=== PATIENT | female | born 1970 | race Caucasian/White ===

== ENCOUNTER 2021-10-30 15:52 | Outpatient (REF) | payer OTHER, SELFPAY ==
[2021-10-30 18:41] LABS: Estimated Average Glucose 91 mg/dL; Hemoglobin A1C 96.0945 umol/L; Hemoglobin A1c % 4.8 %
[2021-10-30 18:46] LABS: Iron 64 mcg/dL (30-160); Percent Iron Saturation 26 % (15-50); Total Iron Binding Capacity 243 mcg/dL (228-428); Unsaturated Iron Binding 179 ug/dL
[2021-10-30 18:55] LABS: Appearance Urine CLEAR; Color Urine YELLOW; Glucose Urine UA NEG (NEG); Leukocyte Esterase Urine NEG (NEG); Nitrite Urine NEG (NEG); PH 5.5 (5.0-8.0); Specific Gravity - Urine >= 1.030 (1.005-1.025); Urine Blood NEG (NEG); Urine Ketones 5 MG/DL (NEG); Urine Protein NEG (NEG-TRACE)
[2021-10-30 19:06] LABS: Syphilis Screen Nonreactive (Nonreactive)
[2021-10-30 19:09] LABS: Ferritin 120 ng/mL (10-250); Thyroid Stimulating Hormone 1.83 uIU/mL (0.32-4.0)
[2021-10-30 19:21] LABS: Folate > 20.0 ng/mL (> or = 4.0); Vitamin B12 384 pg/mL (200-900)
== END 2021-10-30 15:53 | disposition home or self-care (01) ==
LOC: HO.MANLDS 15:52
PROVIDERS: PCP Physician Assistant; Visit Provider Physician Assistant
DX: R41.3 Other amnesia (principal)
CPT/HCPCS: 36415; 81003; 82607; 82728; 82746; 83036; 83540; 84439; 84443; 86780

== ENCOUNTER 2021-11-02 08:04 | Outpatient (REF) | payer OTHER, SELFPAY ==
[2021-11-02 11:05] LABS: MANUAL DIFF FLAG NO
[2021-11-02 11:07] LABS: Basophils Percent Auto 0.3 % (0-2); Eosinophils Absolute Auto 0.2 X10*3/uL (0.0-0.4); Eosinophils Percent Auto 2.5 % (0-4); Hematocrit 41.6 % (37.0-47.0); Hemoglobin 13.9 g/dl (12.0-16.0); Imm Gran Abs Auto 0.06 X10*3/uL (0.00-0.03); Lymphocytes Absolute Auto 1.7 X10*3/uL (1.2-4.9); Lymphocytes Percent Auto 28.3 % (20-40); Mean Corpuscular HGB Conc 33.4 g/dl (31.0-35.0); Mean Corpuscular Hemoglobin 30.8 pg (27.0-33.0); Mean Corpuscular Volume 92.2 fL (80.0-98.0); Mean Platelet Volume 10.3 fL (9.4-12.3); Monocytes Absolute Auto 0.5 X10*3/uL (0.1-1.2); Neutrophils Absolute Auto 3.6 x10*3/uL (2.0-8.3); Neutrophils Percent Auto 59.9 % (45-73); Platelet Count 219 X10*3/uL (160-400); Red Blood Count 4.51 X10*6/uL (4.20-5.50); Red Cell Distribution Width 12.2 % (11.0-16.0)
[2021-11-02 11:23] LABS: Alanine Aminotransferase 16 U/L (0-31); Albumin Level 4.2 g/dL (3.5-5.0); Alkaline Phosphatase 39 U/L (39-117); Anion Gap 10 (12-20); Aspartate Amino Transferase 18 U/L (5-31); Bilirubin Total 0.6 mg/dL (0.0-1.0); Blood Urea Nitrogen 17 mg/dL (9-16); Calcium 9.2 mg/dL (8.4-10.2); Carbon Dioxide 29 mmol/L (22-29); Chloride 105 mmol/L (96-108); Cholesterol 177 mg/dL; Estimated Glomerular Filt Rate > 60; Glucose Fasting 73 mg/dL (60-99); HDL Cholesterol 43 mg/dL; LDL Cholesterol Calculated 113 mg/dl; Sodium 140 mmol/L (135-145); Total Protein 6.6 g/dL (6.5-8.0); Triglycerides 106 mg/dL
== END 2021-11-02 08:05 | disposition home or self-care (01) ==
LOC: HO.MANLDS 08:04
PROVIDERS: PCP Physician Assistant; Visit Provider Physician Assistant
DX: Z00.00 Encounter for general adult medical examination without abnormal findings (principal)
CPT/HCPCS: 36415; 80053; 80061; 85025

== ENCOUNTER 2021-11-04 11:36 | Outpatient (REF) | payer OTHER, SELFPAY ==
[2021-11-04 12:55] LABS: Appearance Urine HAZY; Color Urine YELLOW; Glucose Urine UA NEG (NEG); Leukocyte Esterase Urine NEG (NEG); Nitrite Urine NEG (NEG); Specific Gravity - Urine <= 1.005 (1.005-1.025); Urine Blood NEG (NEG); Urine Ketones NEG (NEG); Urine Protein NEG (NEG-TRACE)
== END 2021-11-04 11:37 | disposition home or self-care (01) ==
LOC: HO.MANLDS 11:36
PROVIDERS: PCP Physician Assistant; Visit Provider Physician Assistant
DX: R30.0 Dysuria (principal)
CPT/HCPCS: 81003

== ENCOUNTER 2022-05-31 14:24 | Outpatient (REF) | payer OTHER, SELFPAY ==
[2022-05-31 15:32] LABS: Appearance Urine Clear; Color Urine Yellow; Glucose Urine UA Negative (Negative); Leukocyte Esterase Urine Negative (Negative); Nitrite Urine Negative (Negative); Specific Gravity - Urine <= 1.005 (1.005-1.025); Urine Blood Negative (Negative); Urine Ketones Negative (Negative); Urine Protein Negative (Neg-Trace)
== END 2022-05-31 14:25 | disposition home or self-care (01) ==
LOC: HO.LNP 14:24
PROVIDERS: Visit Provider Physician Assistant
DX: Z00.00 Encounter for general adult medical examination without abnormal findings (principal)
CPT/HCPCS: 81003; 87086

== ENCOUNTER 2023-03-18 12:08 | Outpatient (REF) | payer OTHER, SELFPAY ==
[2023-03-18 17:54] LABS: Alanine Aminotransferase 17 U/L (0-31); Albumin Level 4.1 g/dL (3.5-5.0); Alkaline Phosphatase 50 U/L (39-117); Aspartate Amino Transferase 20 U/L (5-31); Bilirubin Direct 0.3 mg/dL (0.0-0.5); Bilirubin Total 0.6 mg/dL (0.0-1.0); Total Protein 6.5 g/dL (6.5-8.0)
== END 2023-03-18 12:09 | disposition home or self-care (01) ==
LOC: HO.MANLDS 12:08
PROVIDERS: Visit Provider Internal Medicine
DX: R74.01 Elevation of levels of liver transaminase levels (principal)
CPT/HCPCS: 36415; 80076

== ENCOUNTER 2024-01-16 15:07 | Outpatient (REF) | payer OTHER, SELFPAY ==
[2024-01-16 18:10] LABS: Alanine Aminotransferase 14 U/L (0-31); Albumin Level 4.4 g/dL (3.5-5.0); Alkaline Phosphatase 54 U/L (39-117); Anion Gap 11 (12-20); Aspartate Amino Transferase 24 U/L (5-31); Bilirubin Total 0.4 mg/dL (0.0-1.0); Blood Urea Nitrogen 16 mg/dL (9-16); Calcium 9.6 mg/dL (8.4-10.2); Carbon Dioxide 27 mmol/L (22-29); Chloride 108 mmol/L (96-108); Estimated Glomerular Filt Rate > 60; Glucose Random 87 mg/dL (60-115); Magnesium 2.2 mg/dL (1.6-2.6); Potassium 3.8 mmol/L (3.3-5.1); Sodium 142 mmol/L (135-145)
[2024-01-16 18:28] LABS: Free T4 (Free Thyroxine) 1.02 ng/dL (0.71-1.85); Thyroid Stimulating Hormone 1.29 uIU/mL (0.32-4.0); Vitamin D 25-OH Total 93.5 ng/mL (>30)
[2024-01-16 18:32] LABS: Folate 8.1 ng/mL (> or = 4.0); Vitamin B12 363 pg/mL (200-900)
[2024-01-16 18:41] LABS: Erythrocyte Sedimentation Rate 6 MM/HR (0-20)
[2024-01-17 05:26] LABS: Parathyroid Hormone Intact 30.8 pg/mL (8.7-77.1)
[2024-01-17 17:52] LABS: Lyme Abs Screen <0.90 index
[2024-01-24 16:09] LABS: A. Phagocytophilum Ab IgG <1:64 (<1:64); A. Phagocytophilum Ab IgM <1:20 (<1:20); E. Chaffeensis Ab IgG <1:64 (<1:64); E. Chaffeensis Ab IgM <1:20 (<1:20)
== END 2024-01-16 15:08 | disposition home or self-care (01) ==
LOC: HO.MANLDS 15:07
PROVIDERS: Visit Provider Physician Assistant
DX: M79.10 Myalgia, unspecified site (principal)
CPT/HCPCS: 36415; 80053; 82306; 82550; 82607; 82746; 83735; 83970; 84100; 84439; 84443; 85652; 86140; 86617; 86618; 86666